=== PATIENT | female | born 1950 | race Caucasian/White ===

== ENCOUNTER 2018-12-20 06:58 | Day surgery (SDC) | payer MEDICARE ==
[~2018-12-20] VITALS: Ht 165.1 cm; Wt 75.5 kg
[~2018-12-20 06:58] MED LIST: AMLO5 PO; ATEN50 PO; ATOR40TA PO; Aspir 8181 MG PO
[2018-12-20] MEDS ORDERED: LOSARTAN-HCTZ1 EAC2 PO (06:59)
[2018-12-20] MEDS ORDERED: DAILY VALUE1 EACH PO (06:59)
--- NOTE | 2018-12-20 07:20 | NUR ---
12/20/18 0720 Vivienne Santos PATIENT CONFIRMS NPO STATUS AND AGREES WITH SCHEDULED PROCEDURE. O2 VIA N/C INTACT THROUGHOUT SEDATION/PROCEDURE. 3-LEAD EKG REVIEWED WITH PHYSICIAN PRIOR TO START OF PROCEDURE. MONITOR INTACT WITH CONTINUOUS PULSE OXIMETRY AND INTERMITTENT BP.
--- NOTE | 2018-12-20 07:38 | NUR ---
PT ADMITTED TO [facility]. AGREES WITH PLANNED PROCEDURE. MEDS, ALLERGIES AND HX REVIEWED. LUNG SOUNDS CLEAR. STATES SHE TOLERATED BOWL PREP AND LAST BM CLEAR.
--- NOTE | 2018-12-20 09:06 | NUR ---
Discharge instructions reviewed with patient. Patient verbalizes understanding. Copy given to patient to take home. Patient States Post-Procedure ride home has been arranged. Discharged via wheelchair to private car for ride home.
== END 2018-12-20 22:53 | disposition home or self-care (01) ==
LOC: ORSCMMR 06:58 → ORD 08:00 → ORSCMMR 22:53
PROVIDERS: Internal Medicine Gastroenterology
PROC: 0DBM8ZX Excision of Descending Colon, Via Natural or Artificial Opening Endoscopic, Diagnostic (ICD-10-PCS; principal; 2018-12-20 08:00)
PROC: 0DBP8ZX Excision of Rectum, Via Natural or Artificial Opening Endoscopic, Diagnostic (ICD-10-PCS; principal; 2018-12-20 08:00)
DX: Z12.11 Encounter for screening for malignant neoplasm of colon (principal); Z85.048 Personal history of other malignant neoplasm of rectum, rectosigmoid junction, and anus; E78.00 Pure hypercholesterolemia, unspecified; D12.4 Benign neoplasm of descending colon; K57.30 Diverticulosis of large intestine without perforation or abscess without bleeding; G47.30 Sleep apnea, unspecified; Z87.891 Personal history of nicotine dependence; Z79.82 Long term (current) use of aspirin; Z79.899 Other long term (current) drug therapy
CPT/HCPCS: 88305; J2250; J3010; J7120

== ENCOUNTER → 2019-02-19 | Outpatient (CLI) | payer MEDICARE ==
[~2019-02-19] MED LIST changes: +DAILY VALUE1 EACH PO; +LOSARTAN-HCTZ1 EAC2 PO
== END | disposition home or self-care (01) ==
LOC: LAB SHORT 15:12 → LAB 15:12
DX: J02.9 Acute pharyngitis, unspecified (principal)
CPT/HCPCS: 87081

== ENCOUNTER → 2020-03-07 | Outpatient (CLI) | payer MEDICARE ==
[2020-03-11 14:19] LABS: Stool Occult Blood Guaiac 1 Neg (Neg)
[2020-03-11 18:53] LABS: Adenovirus F 40/41 Not Detected (NOT DETECT); Astrovirus Not Detected (NOT DETECT); Campylobacter Sp Not Detected (NOT DETECT); Cryptosporidium Not Detected (NOT DETECT); Cyclospora Cayetanensis Not Detected (NOT DETECT); E. Coli O157 Not Detected (NOT DETECT); Entamoeba Histolytica Not Detected (NOT DETECT); Enteroaggregative E. coli-EAEC Not Detected (NOT DETECT); Enteropathogenic E. coli-EPEC Not Detected (NOT DETECT); Enterotoxigenic E. coli-ETEC Not Detected (NOT DETECT); Giardia Lamblia Not Detected (NOT DETECT); Norovirus GI/GII Not Detected (NOT DETECT); Plesiomonas Shigelloides Not Detected (NOT DETECT); Rotavirus A Not Detected (NOT DETECT); Salmonella Sp Not Detected (NOT DETECT); Sapovirus Not Detected (NOT DETECT); Shiga Toxin-prod E. coli-STEC Not Detected (NOT DETECT); Shigella/Enteroin E. coli-EIEC Not Detected (NOT DETECT); Vibrio Cholerae Not Detected (NOT DETECT); Vibrio Sp Not Detected (NOT DETECT); Yersinia Enterocolitica Not Detected (NOT DETECT)
== END ==
LOC: LAB 07:20 → LAB SHORT 07:20
PROVIDERS: Nurse Practitioner Family
DX: N64.4 Mastodynia (principal); R19.7 Diarrhea, unspecified
CPT/HCPCS: 0097U; 82272; 87177; 87209

== ENCOUNTER → 2021-10-14 | Outpatient (CLI) | payer MEDICARE ==
[2021-10-14 13:34] LABS: Source, Urine Voided
[2021-10-14 16:19] LABS: Appearance, Urine Clear (Clear); Bilirubin, Urine Neg (Neg); Blood, Urine Neg (Neg); Color, Urine Yellow (P-Yellow); Glucose Qualitative, Urine Neg (Neg); Ketones, Urine Neg (Neg); Leukocyte Esterase, Urine Neg (Neg); Nitrite, Urine Neg (Neg); Protein, Urine Neg (Neg); Urobilinogen, Urine NORM (Normal)
[2021-10-14 18:18] LABS: Creatinine, Urine Random 36.9 mg/dL (27.00-270.00); Protein, Urine Random 5.8 mg/dL (0.0-11.9); Protein/Creat Ratio, Ur Random 0.2
== END | disposition home or self-care (01) ==
LOC: LAB SHORT 11:10
PROVIDERS: Internal Medicine Nephrology
DX: N18.32 Chronic kidney disease, stage 3b (principal)
CPT/HCPCS: 81003; 82570; 84156

== ENCOUNTER → 2022-08-30 | Outpatient (CLI) | payer MEDICARE | END | disposition home or self-care (01) | LOC: LAB 10:30 → LAB SHORT 10:30 | DX: N39.0 Urinary tract infection, site not specified (principal) | CPT/HCPCS: 87086 ==

== ENCOUNTER → 2024-01-03 | Outpatient (CLI) | payer OTHER | END | disposition home or self-care (01) | LOC: LAB SHORT 09:13 → LAB 09:13 | DX: R35.0 Frequency of micturition (principal) | CPT/HCPCS: 87086 ==

== ENCOUNTER → 2025-03-27 | Outpatient (CLI) | payer OTHER ==
[2025-03-27 12:59] LABS: Campylobacter Sp Detected (NOT DETECT); E. Coli O157 Not Detected (NOT DETECT); Enteroaggregative E. coli-EAEC Not Detected (NOT DETECT); Enteropathogenic E. coli-EPEC Not Detected (NOT DETECT); Enterotoxigenic E. coli-ETEC Not Detected (NOT DETECT); Salmonella Sp Not Detected (NOT DETECT); Shiga Toxin-prod E. coli-STEC Not Detected (NOT DETECT); Shigella/Enteroin E. coli-EIEC Not Detected (NOT DETECT); Vibrio Sp Not Detected (NOT DETECT)
[2025-03-29 19:38] LABS: PANCREATIC ELASTASE,FECAL 246 ug/g (>=100)
[2025-03-29 21:06] LABS: CALPROTECTIN,FECAL 5 ug/g (<=49)
== END ==
LOC: LAB SHORT 10:07 → LAB 10:07
PROVIDERS: Student in an Organized Health Care Education/Training Program
DX: K52.9 Noninfective gastroenteritis and colitis, unspecified (principal)
CPT/HCPCS: 82653; 83993; 87338; 87507